=== PATIENT | female | born 1995 | race Native Hawaiian/Other Pacific Islander ===

== ENCOUNTER 2017-04-12 04:16 | Inpatient (IN) | payer OTHER ==
[~2017-04-12] VITALS: Ht 147.3 cm; Wt 61.2 kg
[2017-04-12] MEDS ORDERED: Lactated Ringer's 1,000 ML IV PRN (07:23)
[2017-04-12] MEDS ORDERED: fentaNYL-PF 50 mCg/mL 2 mL Inj IVPUSH PRN (07:25)
[2017-04-12] MEDS ORDERED: Hemorrhage Kit, Post Partum XX ONE ×2 (07:25→17:00)
[2017-04-12] MEDS ORDERED: Oxytocin 30 Units/500 mL LR 30 UNITS in IV Premix 1 EACH IV PRN ×2 (07:25→17:00)
[2017-04-12] MEDS ORDERED: Penicillin G K Inj 5,000,000 UNITS in Dextrose 5% Minibag Plus 100 ML IV ONE (07:25)
[2017-04-12] MEDS ORDERED: Carboprost 250 mCg/mL Inj IM PRN ×2 (07:25→17:00)
[2017-04-12] MEDS ORDERED: Sodium Chloride LOK Flush 10 mL Syringe IVFLUSH PRN (07:25)
[2017-04-12] MEDS ORDERED: Methylergonovine 0.2 mg/mL Inj IM PRN ×2 (07:25→17:00)
[2017-04-12] MEDS ORDERED: Oxytocin 10 Unit/mL Inj IM PRN ×2 (07:25→17:00)
[2017-04-12 08:08] LABS: Mean Corpuscular Hemoglobin 28.6 pg (27.0-35.0); Mean Corpuscular Volume 85.3 fL (81-100)
[2017-04-12] MEDS ORDERED: Lactated Ringer's 1,000 ML IV SCH ×3 (10:34→16:59)
[2017-04-12] MEDS ORDERED: Lactated Ringer's 500 ML IV ONE (10:34)
[2017-04-12] MEDS ORDERED: EPHEDrine Sulfate 50 mg/mL Inj IVPUSH PRN (10:35)
[2017-04-12] MEDS ORDERED: Atropine 1 mg/10 mL (Code) Syringe IVPUSH PRN (10:35)
[2017-04-12] MEDS ORDERED: fentaNYL 2 mCg/mL-Bupiv 0.125% 100 ML EPIDURAL SCH (10:35)
[2017-04-12] MEDS ORDERED: Ondansetron 2 mg/mL 2 mL Inj IVPUSH PRN (10:35)
--- NOTE | 2017-04-12 11:18 | PCM.HPANE ---
Patient Data Date of Service: Apr 12, 2017 Surgeon Admitting Provider:Praneeth Gonzalez MD Attending Provider:Praneeth Gonzalez MD Primary Care Physician:Deyvi Other Provider:Mirta Rinaldi Anesthesia Reason for Visit Term Early Labor TERM EARLY LABOR Ht/WT & BMI Height (Centimeters): 147 Weight (Kilograms): 61.2 Body Mass Index 28.2 Allergies Coded Allergies: No Known Allergies (Unverified , 04/12/17) Past Anesthesia History Anesthesia History: Denies:: Abnormal Airway, Difficult Intubation Diabetes History Hx Diabetes?: No MRSA MRSA: No Medications Hypertension Medication: No Home Meds Incl Beta Gabi: No History History of ENT Problems?: No HEENT History: Denies:: Abnormal Airway Denture Type: None Teeth Condition: Within Normal Limits Hx of Heart Problems?: No Cardiovascular History: Denies:: Heart Murmur Hx of Respiratory Problem?: No Respiratory History: Denies:: Asthma Hx Neurologic Problems?: No Hx of GI Problems?: No Hx of Problems?: No HX of Peritoneal Dialysis: No Female Hx: Positive for:: Currently Hx Musculoskeletal Problems?: No Hx of Psycho/Social Problems?: No Hx Surgeries?: No Hx Any Other Health Problems?: No Hx Diabetes: No Hx Alcohol Use: NoHx Substance Use: NoHave You Smoked inLast 12 mo: No Stop/Bang Treated for Sleep Apnea?: No Do You Have a CPAP Machine?: No YESSENIA Risk Assessment: Low Risk, <3 Yes Risk Assessment Category Category 1A: Patient has history of documented sleep apnea, and HAS NOT received any narcotic, sedative or anesthesia administration during this stay. Category 1B: Patient has history of documented sleep apnea, and HAS received any narcotic , sedative or anesthesia administration during this stay Category 2: Patient has SUSPECTED Obstructive Sleep Apnea, and HAS received any narcotic , sedative or anesthesia administration during this stay. Category 3: Patient has SUSPECTED Obstructive Sleep Apnea and HAS NOT received narcotic, sedative or anesthesia administration during this stay. Category 4: Outpatient in Procedural Areas with known sleep apnea or who screen positive for High Risk via the STOP/BANG questionnaire. Exam Exam General Appearance: Alert, Oriented X3, Cooperative HEENT/AIRWAY: Neck Movement, Mouth Opening Lungs: Normal Air Movement Heart: Regular Rate/Rhythm Meds/Labs/Diagnostics Admission Meds Current Medications Penicillin G Potassium/ Dextrose/Water (Pfizerpen Inj/ D5W Minibag Plus) 100 ml @ 240 mls/hr ONCE ONCE IV Last administered on 04/12/17t 08:31; Start at 07:25; Stop 04/12/17 at 07:59; Status DC Labs Test 04/12/17 07:40 White Blood Count 8.0th/mm3 (3.8-10.1) Red Blood Count 4.23mil/mm3 (3.90-5.20) Hemoglobin 12.1g/dL (12.0-15.6) Hematocrit 36.1% (35.0-46.0) Mean Corpuscular Volume 85.3fL (81-100) Mean Corpuscular Hemoglobin 28.6pg (27.0-35.0) Mean Corpuscular Hemoglobin Concent 33.5% (32.0-37.0) Red Cell Distribution Width 12.4% (12.3-15.4) Platelet Count 297bil/L (150-400) Plan Impression Patient chart reviewed, patient interviewed and anesthestic plan with risks, benefits, and alternatives discussed, and informed consent obtained. NPO per Anesth. Guidelines: No ASA Physical Status: ASA2 Mod Systemic Disease Anesthetic Plan: Epidural Bene/Risks/Altern/Consents: Yes HP Complete Prior to Induction: Yes Luis E Gordon MD Apr 12, 2017 10:35
[2017-04-12] MEDS ORDERED: Penicillin G K Inj 3,000,000 UNITS in IV Premix 1 EACH IV SCH (12:30)
[2017-04-12] MEDS ORDERED: Sodium Chloride LOK Flush 10 mL Syringe IVFLUSH SCH (16:30)
--- NOTE | 2017-04-12 16:59 | PCM.OBVAG ---
Vaginal Delivery Date of Service Apr 12, 2017 Pre Operative Diagnosis Pre Operative Diagnosis Term gestation, labor Post Operative Diagnosis Post Operative Diagnosis Term gestation, delivered Procedure Obstetical Procedure: Normal Spontaneous Vaginal Delivery Firing Pin Gauger/Occupational Health Physician Provider and Occupational Health Physician: Praneeth Gonzalez MD Indication for Procedure Induction: Active labor, SROM, Progressed normally through labor, Other ( repetitive deep variable decelerations (down to the 70s) proximal to delivery, recovering to baseline after contractions) Findings Obstetrical Findings: (Female), Cord (3 Vessel), Presentation (Vertex) , 1 minute (8), 5 minutes (9), Placenta (Intact/Normal), Perineal Laceration (None) Analgesia/Medications Obstetrical Anesthesia: Epidural Procedure Details Procedure Details 22yo at 38 6/7 weeks EGA presenting in active labor. care received at another facility. No records available to us at the time of presentation. Variable decelerations noted proximal to delivery. Uncomplicated , as noted above. No obvious explanation at delivery for repetitive deep variable decelerations. Specimen Specimens: Placenta Blood Loss & Administration Estimated Blood Loss: 250 Post Procedure Plan Post delivery Condition: Mom stable, Baby stable to nursery Praneeth Gonzalez MD Apr 12, 2017 16:59
[2017-04-12] MEDS ORDERED: LANOlin HPA 7 Gm Ointment TOPICAL PRN (17:00)
[2017-04-12] MEDS ORDERED: Benzocaine (Dermoplast) 20% 60 Gm Spray TOPICAL PRN (17:00)
[2017-04-12] MEDS ORDERED: Witch Hazel-Glycerin Pads TOPICAL PRN (17:00)
[2017-04-13 06:34] LABS: Mean Corpuscular Hemoglobin 28.4 pg (27.0-35.0); Mean Corpuscular Volume 86.2 fL (81-100)
--- NOTE | 2017-04-13 06:41 | PCM.ANEP1 ---
Post Anesthesia PACU Phase 1 Assessment Date of Service: Apr 13, 2017 Vital Signs See OB Documentation Anesthetic Administered: Epidural Level of Alertness: Awake, talking FONSECA's with Equal Strength: Yes Pain: No Nausea or Vomiting: No CV Function & Hydration Stable: Yes Airway Device: Oxygen Delivery: Room Air Lungs: Normal Air Movement Dermatome Level: Full Sensation PACU Phase 2 Assessment Complications: No Follow up Care: No Patient Instructions Provided: N/A Luis E Gordon MD Apr 13, 2017 06:41
--- NOTE | 2017-04-13 07:30 | PCM.PNOBPP ---
Subjective Date of Service Apr 13, 2017 Post : Spontaneous Vaginal Delivery Visit History day #1 Subjective Patient without complaints. Lochia: Normal Pain Management: No or Minimal Pain Gastrointestinal: Good Appetite, No N/V Postop Activity: Ambulating Independently Labs Laboratory Tests 04/13/17 06:15: White Blood Count 10.6, Red Blood Count 3.91, Hemoglobin 11.1, Hematocrit 33.7, Mean Corpuscular Volume 86.2, Mean Corpuscular Hemoglobin 28.4, Mean Corpuscular Hemoglobin Concent 32.9, Red Cell Distribution Width 12.3, Platelet Count 291 Exam Vital Signs Vital Signs Vital Signs Date Time Temp Pulse Resp B/P Pulse Ox O2 Delivery O2 Flow Rate FiO2 04/13/17 06:41 Room Air Vital Signs: VS reviewed, stable Exam Abdomen: Uterus is (U-1), Fundus firm, Abdomen soft, Abdomen non-tender : Voiding without difficulty Extremities: No cords, No tenderness/swelling Lungs: Clear to Auscultation, Normal Air Movement Heart: Normal S1, Normal S2, No Murmurs/Rubs/Gallops General: Alert, Oriented X3, Cooperative, No Acute Distress OB Post Assessment/Plan Assessment PPD#1 -- doing well Problems: (1) Spontaneous vaginal delivery Status: Acute ICD Code: O80 (2) normal course Status: Acute ICD Code: Z39.2 (3) with 38 completed weeks gestation Status: Acute ICD Code: Z3A.38 Pain Evaluation: Adequate Pain Control Post plan: Anticipate discharge home today Praneeth Gonzalez MD Apr 13, 2017 07:30
--- NOTE | 2017-04-13 07:36 | PCM.DC.OB ---
Obstetrical Discharge Summary Date of Service Apr 13, 2017 Date of hospital admission Apr 12, 2017 at 07:07 Date of Discharge: Apr 13, 2017 Providers Admitting Physician: Praneeth Gonzalez MD Primary Care Physician: Nopcp Attending Physician: Praneeth Gonzalez MD Problems: (1) Spontaneous vaginal delivery Status: Acute ICD Code: O80 (2) normal course Status: Acute ICD Code: Z39.2 (3) with 38 completed weeks gestation Status: Acute ICD Code: Z3A.38 Brief History and Physical: 22yo presenting in active phase labor at 38 6/7 weeks EGA. Hospital Course: Patient received care out of the area and no records were available for review. She received intrapartum penicillin for prophylaxis of GBS that was presumed positive from reported past history of needing prophylaxis in labor. Labor progressed largely without incident. She did have repetitive deep variable decelerations proximal to delivery. She delivered a vigorous female via uncomplicated . course was uneventful. Disposition Home Follow-up plan 6 weeks Discharge Diet: No restrictions Discharge Activity-General: Pelvic Rest for 6 weeks Praneeth Gonzalez MD Apr 13, 2017 07:36
--- NOTE | 2017-04-13 07:38 | PCM.DIOB ---
Obstetrical Disch Instruction Date of Service: Apr 13, 2017 Dates of Hospitalization Date of Hospital Admission Apr 12, 2017 at 07:07 Providers Admitting Physician: Praneeth Gonzalez MD Primary Care Physician: Nopcp Attending Physician: Praneeth Gonzalez MD Discharge Diagnosis Problems: (1) Spontaneous vaginal delivery Status: Resolved ICD Code: O80 (2) normal course Status: Resolved ICD Code: Z39.2 (3) with 38 completed weeks gestation Status: Resolved ICD Code: Z3A.38 Diet Discharge Diet: No restrictions Activity Discharge Activity-General: Pelvic Rest for 6 weeks Dressing and Incisional Care Hygiene: May shower Follow Up Plan Follow Up Plan Follow up with PCP Follow-up appointment: Weeks (6) Call your provider for: Fever or Chills, Shortness of breath, Heavy vaginal bleeding, Epigastric pain, Vaginal discomfort, Red painful breasts Parneeth Gonzalez MD Apr 13, 2017 07:38
--- NOTE | 2017-04-13 10:27 | NUR ---
Social work note - Family assessment MOB - Jason Brewer. Baby Daniela Brewer Reason for SW consult - Late to care vs fragmented care. Current living situation: MOB and FOPardeep recently moved to [place] from [facility] to be closer to her family and for 's work. They moved two weeks ago, FOB started working at [employer]. MOB sister lives in [place]. Parents have a 4 yr old son who is currently in the care of MOB Sister. MOB understands some [place], but she is a , [place] is her second language. FOB speaks and understands [place] better. No previous CPS involvement. Substance Abuse: MOB denies any drugs or alcohol use. MOB refused UDS. Baby UDS negative - pending cord blood labs. Mental Health : MOB denies any mental health issues, no previous Post depression. DV issues: No concerns identified. Supports: Parents state that they help each other, and JOSUÉ's sister will be a big support - they are new to the community. Referrals: Family has been on WIC when their 4 yr old was born. SAVINGS COUNSELOR provided family with phone numbers to sign up for WIC as well as contact information to find a elementary school professional in the area for the children. Assessment: Family who recently moved to [place]. They state that they were connected with OB in [place] at [facility] - Keg Raiser is working to get previous medical records. [place] is their second language. They feel prepared for baby at home, have supports and supplies for the baby. FOB is working. Disposition: Baby is to stay in the hospital for 24-48 hours for observation for blood sugar issues. Parents will d/c with baby. SAVINGS COUNSELOR will follow up with CPS if issues arise. No other needs identified. COLIN Bear
[2017-04-13 13:12] LABS: Rubella IgG Antibody <0.90 index (Immune >0.99)
--- NOTE | 2017-04-15 16:17 | PATH ---
SURGICAL PATHOLOGY Attending Physician:Praneeth Gonzalez MD CASE STATUS: Signed Out PATIENT NAME: IRWIN HAYES PID: [id number] : 1995 DATE COLLECTED:04/12/2017 00:00 SPECIMEN: Placenta CLINICAL HISTORY: TERM LABOR WITH REPETITIVE DEEP VARIABLE DECELERATIONS JEROMY NO OBVIOUS EXPLANATION FOR DECELERATIONS AT TIME OF DELIVERY 22 Y/O @38 WK EGA NO RECORDA AVAILABLE, DID NOT RECEIVE CARE HERE 1. PLACENTA FINAL DIAGNOSIS: 1.BRIAN PLACENTA: PLACENTA PARENCHYMA. WEIGHT 395 GRAMS. CHORIONIC VILLOUS MATURATION IS SLIGHTLY LESS MATURE THAN FOR STATED GESTATIONAL AGE. MODERATE INTRA- AND INTERVILLOUS FIBRIN IS PRESENT. NO VILLITIS IDENTIFIED. UMBILICAL CORD: 20.0 CM IN LENGTH. ATTACHED 5.5 CM FROM THE PLACENTAL DISK MARGIN. NO FUNISITIS IDENTIFIED. MEMBRANES: RUPTURED 11.5 CM FROM THE PLACENTAL DISK MARGIN. VERY FOCAL, MILD CHORIOAMNIONITIS PRESENT. ICD10 O43.9 GROSS DESCRIPTION: The specimen is received in formalin, labeled with the patient's name and consists of an intact placenta and includes placental disc (395 g, 15.2 x 14.7 x 3.0 cm), umbilical cord (length-20.0 cm, diameter-0.9 x 0.8 cm) and membranes. The membranes are ruptured 11.5 cm from the free edge of the placenta and are semi-translucent. The umbilical cord is attached 5.5 cm from the edge of the placenta and contains 3 vessels. The surface is smooth and shiny with no evidence of meconium. The maternal surface is dark maroon with normal cotyledon formation. The placental disc is spongy with no hematomas, infarcts, nodules, masses, or lesions. Section code: (A) edge of placenta with membranes, umbilical cord; (B-G) placenta, 3 bisected full thickness sections. 04/14/17 JM MICRO DESCRIPTION: See diagnosis. ICD-9 CODES: CPT CODES: 1: 16049 Electronically Signed Out Sara [address] MD [facility] [address], [place] [address] Technical component performed at [facility], [address], [place], [address]
== END 2017-04-13 14:30 | disposition home or self-care (01) | DRG 775 ==
LOC: EDBD → FBCO 04:16 → FBC 07:07
PROVIDERS: ADMIT Family Medicine; ATTEND Family Medicine
PROC: 10E0XZZ Delivery of Products of Conception, External Approach (ICD-10-PCS; principal; 2017-04-12)
DX: O76 Abnormality in fetal heart rate and rhythm complicating labor and delivery (principal); O69.81X0 Labor and delivery complicated by cord around neck, without compression, not applicable or unspecified; Z37.0 Single live birth; Z3A.38 38 weeks gestation of pregnancy